=== PATIENT | male | born 1950 | race Caucasian/White ===

== ENCOUNTER 2018-08-30 12:41 | Emergency (ER) | payer MEDICARE, OTHER ==
[~2018-08-30] VITALS: Ht 177.8 cm; Wt 79.5 kg
[~2018-08-30 12:41] MED LIST: NAPROSYN500 MG PO; SIMVASTATIN10 MG PO
[2018-08-30] MEDS ORDERED: MUPIROCIN21 TOP (14:00)
[2018-08-30] MEDS ORDERED: CEPHALEXIN500 M1 PO (14:00)
[2018-08-30 14:05] VITALS: BP 160/93
== END 2018-08-30 14:17 | disposition home or self-care (01) ==
LOC: ED 12:41
PROC: 0HDQXZZ Extraction of Finger Nail, External Approach (ICD-10-PCS; principal; 2018-08-30)
DX: S61.101A Unspecified open wound of right thumb with damage to nail, initial encounter (principal); X58.XXXA Exposure to other specified factors, initial encounter; Y93.69 Activity, other involving other sports and athletics played as a team or group; Y92.009 Unspecified place in unspecified non-institutional (private) residence as the place of occurrence of the external cause